=== PATIENT | male | born 1965 | race American Indian/Alaskan Native ===

== ENCOUNTER 2016-12-25 13:16 | Emergency (ER) | payer OTHER ==
[2016-12-25 13:27] VITALS: BP 132/83
[2016-12-25] MEDS ORDERED: Lidocaine 1% with EPINEPHrine 1:100,000 20 ML MDV INJECT ONE (13:51)
--- NOTE | 2016-12-25 14:12 | EDM.PDOC ---
ED HPI Skin/Rash - General Chief Complaint: Laceration Stated Complaint: CUT ON LT HAND Time Seen by Provider: 12/25/16 13:28 Source: Reports: Patient History Limitations: Reports: No limitations - History of Present Illness INITIAL COMMENTS - FREE TEXT/NARRATIVE: HISTORY AND PHYSICAL: History of present illness: [] Review of systems: As per history of present illness and below otherwise all systems reviewed and negative. Past medical history: As per history of present illness and as reviewed below otherwise noncontributory. Surgical history: As per history of present illness and as reviewed below otherwise noncontributory. Social history: No reported history of drug or alcohol abuse. Family history: As per history of present illness and as reviewed below otherwise noncontributory. HEENT: Normocephalic, atraumatic, pupils normal and symmetrical, supple neck, no meningismus, normal color Lungs: Normal and symmetrical chest wall excursion bilateral with no tachypnea or increased work of breathing, grossly normal chest exam Heart: No tachycardia in triage Abdomen: Normal-appearing, nondistended, no visible mass or asymmetry Pelvis: Normal-appearing Genitourinary: Deferred Rectal exam: Deferred Extremities: Atraumatic, normal use and range of motion, no visible evidence of gross neurovascular compromise . Laceration left hand over second metacarpal distribution. 5 cm wound parallel to bone no visible gross contamination or evidence of tendon involvement. Normal strength and range of motion in flexion and extension. Neuro: Awake, alert, oriented. Normal and appropriate mental status. Cranial nerves grossly unremarkable. Motor function normal. Nonfocal neurologic exam. Diagnostics: [Straight left hand to rule out foreign body pending] Therapeutics: [Procedure: Dermabond repair of left hand laceration. Patient sitting. Consent verbally to procedure. 1% lidocaine with epi infused into local wound area. Patient irrigated extensively for several minutes Carlee R. your patient. No visible gross contamination. No clinical evidence of tendon or bony involvement. Sterile compress applied hemostatic on reevaluation. Dermabond repair performed by ARNAUD Chisholm Patient tolerated well no complications.] Impression: [Laceration left hand] Plan: [Patient with laceration of left hand on the dorsum no evidence of tendon involvement neurovascularly intact. No visible gross contamination but discussed with patient possibility of occult foreign body. X-ray pending to rule out radiopaque foreign body. Tetanus needed and updated today. Wound irrigated with high volume tap Water irrigation and Dermabond repair performed, see procedure note. Definitive disposition and diagnosis as appropriate pending reevaluation and review of above. - Related Data Allergies Allergy/AdvReac Type Severity Reaction Status Date / Time codeine Allergy Hives Verified 12/25/16 13:27 Fish Containing Products Allergy Hives Verified 12/25/16 13:27 Penicillins Allergy Hives Verified 12/25/16 13:27 Home Meds: Ambulatory Orders Medication Instructions Recorded Confirmed Carisoprodol [Soma] 350 mg PO BID 01/01/16 12/25/16 SUMAtriptan [Imitrex] 20 mg NS ASDIRECTED PRN 01/01/16 12/25/16 traMADol HCl [Tramadol HCl] 50 mg PO Q6H PRN 01/01/16 12/25/16 Cephalexin [Keflex] 500 mg PO QID 5 Days 12/25/16 Past Medical History - Past Health History Medical/Surgical History: Denies Medical/Surgical History Musculoskeletal History: Reports: Back pain, chronic - Infectious Disease History Infectious Disease History: Reports: Chicken pox, Hepatitis C, Measles, Mumps - Past Surgical History GI Surgical History: Reports: Hernia, inguinal Social & Family History - Family History Family Medical History: Noncontributory - Tobacco Use Smoking Status *Q: Never Smoker - Recreational Drug Use Recreational Drug Use: No ED ROS GENERAL - Review of Systems Review Of Systems: See Below (Her history of present illness) ED EXAM, SKIN/RASH Exam: See Below (Or history of present illness) Course - Vital Signs Last Recorded V/S: Last Vital Signs Temp 36.7 C 12/25/16 13:24 Pulse 78 12/25/16 13:24 Resp 16 12/25/16 13:24 BP 132/83 12/25/16 13:24 Pulse Ox 96 12/25/16 13:24 - Orders/Labs/Meds Orders: Active Orders 24 hr Category Date Time Status Vaccines to be Administered [RC] PER UNIT ROUTINE Care 12/25/16 15:12 Ordered Cephalexin [Keflex] Med 12/25/16 15:12 Once 500 mg PO ONETIME ONE Diphth,Pertuss(Acell),Tet Vac [Adacel] Med 12/25/16 15:12 Once 0.5 ml IM .ONCE ONE Meds: Medications Discontinued Medications Generic Name Dose Route Start Last Admin Trade Name Tamela PRN Reason Stop Dose Admin Cephalexin 500 mg 12/25/16 15:12 Keflex PO 12/25/16 15:13 ONETIME ONE Diphtheria/Tetanus/Acell Pertussis 0.5 ml 12/25/16 15:12 Adacel IM 12/25/16 15:13 .ONCE ONE Lidocaine/Epinephrine 20 ml 12/25/16 13:51 12/25/16 14:29 Xylocaine 1% With Epinephrine 1:100,000 INJECT 12/25/16 13:52 20 ml ONETIME ONE Administration Octyl Cyanoacrylate 1 applic 12/25/16 15:02 12/25/16 15:10 Dermabond Mini TOP 12/25/16 15:03 1 applic ONETIME ONE Administration Departure - Departure Time of Disposition: 15:16 Disposition: Home, Self-Care 01 Condition: good Clinical Impression: Laceration of left hand Forms: ED Department Discharge Additional Instructions: Your laceration has been repaired with adhesive. Do not scrub Zocor apply ointment. The wound adhesive will fall off on its own in the appropriate time frame for spontaneous healing of the wound. Your tetanus is been updated including pertussis vaccination. Will be good for 5 years finish Keflex 4 times a day for 5 days as prescribed to prevent infection. Take Motrin or Tylenol as needed for pain and return immediately for signs of evolving infection. - My Orders Last 24 Hours: My Active Orders 12/25/16 15:12 Vaccines to be Administered [RC] PER UNIT ROUTINE Cephalexin [Keflex] 500 mg PO ONETIME ONE Diphth,Pertuss(Acell),Tet Vac [Adacel] 0.5 ml IM .ONCE ONE - Assessment/Plan Last 24 Hours: My Active Orders 12/25/16 15:12 Vaccines to be Administered [RC] PER UNIT ROUTINE Cephalexin [Keflex] 500 mg PO ONETIME ONE Diphth,Pertuss(Acell),Tet Vac [Adacel] 0.5 ml IM .ONCE ONE
--- NOTE | 2016-12-25 14:27 | CR ---
EXAMINATION: Left hand HISTORY: Pain COMPARISON: None TECHNIQUE: 2 views FINDINGS/IMPRESSION: There is no acute osseous abnormality, dislocation, or fracture. Bone mineraliz ation and joint spaces appear normal. No soft tissue swelling.
[2016-12-25] MEDS ORDERED: Octyl 2-Cyanoacrylate 1 APPLIC TUBE TOP ONE (15:02)
[2016-12-25] MEDS ORDERED: Cephalexin 500 MG Cap PO ONE (15:12)
[2016-12-25] MEDS ORDERED: Diphtheria,Pertussis(Acell),Tetanus Vaccine 0.5 ML Syringe IM ONE (15:12)
== END 2016-12-25 15:29 | disposition home or self-care (01) ==
LOC: MW.ED 13:16
DX: S61.412A Laceration without foreign body of left hand, initial encounter (principal); Z23 Encounter for immunization; Z88.5 Allergy status to narcotic agent; Z88.0 Allergy status to penicillin; Z91.013 Allergy to seafood; W29.8XXA Contact with other powered hand tools and household machinery, initial encounter; Y99.0 Civilian activity done for income or pay
CPT/HCPCS: 73120; 90471; 90715; 99283; A9270; 12001

== ENCOUNTER 2017-01-11 12:34 | Emergency (ER) | payer OTHER ==
--- NOTE | 2017-01-11 14:15 | EDM.PDOC ---
ED HPI GENERAL MEDICAL PROBLEM - General Chief Complaint: Wound Recheck Stated Complaint: PT HAS CUT ON LT HAND Time Seen by Provider: 01/11/17 12:45 Source of Information: Reports: Patient History Limitations: Reports: No Limitations - History of Present Illness INITIAL COMMENTS - FREE TEXT/NARRATIVE: History of present illness: [51-year-old male presenting with continued complaints of wound to the dorsal aspect of his left hand. Patient was seen in this ER for this injury immediately posttrauma and receive treatment, but patient feels that the hand is not healing as it should and as concerned with the nature of it being and resolved and would like it evaluated further.] Review of systems: As per history of present illness and below otherwise all systems reviewed and negative. Past medical history: As per history of present illness and as reviewed below otherwise noncontributory. Surgical history: As per history of present illness and as reviewed below otherwise noncontributory. Social history: No reported history of drug or alcohol abuse. Family history: As per history of present illness and as reviewed below otherwise noncontributory. Physical exam: HEENT: Atraumatic, normocephalic, pupils reactive, negative for conjunctival pallor or scleral icterus, mucous membranes moist, throat clear, neck supple, nontender, trachea midline. Lungs: Clear to auscultation, breath sounds equal bilaterally, chest nontender. Heart: S1S2, regular, negative for clicks, rubs, or JVD. Abdomen: Soft, nondistended, nontender. Negative for masses or hepatosplenomegaly. Negative for costovertebral tenderness. Pelvis: Stable nontender. Genitourinary: Deferred. Rectal: Deferred. Extremities: Left hand with any resolving laceration to the dorsal aspect approximately 2 and half centimeters long with granulation noted. 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 Neurovascular unremarkable. Neuro: Awake, alert, oriented. Cranial nerves II through XII unremarkable. Cerebellum unremarkable. Motor and sensory unremarkable throughout. Exam nonfocal. Patient has no deficit on range of motion on either flexion or extension but indicates that he feels pressure and pain on the dorsal aspect when he does make it this without left hand as opposed to the right. Diagnostics: [X-ray left hand] Therapeutics: [] Impression: [Cellulitis with retained foreign] Plan: [Antibiotics followup with hand] Definitive disposition and diagnosis as appropriate pending reevaluation and review of above. left hand Pain Score (Numeric/FACES): 4 - Related Data Allergies Allergy/AdvReac Type Severity Reaction Status Date / Time codeine Allergy Hives Verified 01/11/17 13:00 Fish Containing Products Allergy Hives Verified 01/11/17 13:00 Penicillins Allergy Hives Verified 01/11/17 13:00 Home Meds: Home Meds Carisoprodol [Soma] 350 mg PO BID 01/01/16 [History] SUMAtriptan [Imitrex] 20 mg NS ASDIRECTED PRN 01/01/16 [History] traMADol HCl [Tramadol HCl] 50 mg PO Q6H PRN 01/01/16 [History] Cephalexin [Keflex] 500 mg PO QID #40 capsule 01/11/17 [Rx] Past Medical History - Past Health History Medical/Surgical History: Denies Medical/Surgical History HEENT History: Reports: None Cardiovascular History: Reports: None Respiratory History: Reports: None Gastrointestinal History: Reports: None Genitourinary History: Reports: None Musculoskeletal History: Reports: Back Pain, Chronic Neurological History: Reports: None Psychiatric History: Reports: None Endocrine/Metabolic History: Reports: None Hematologic History: Reports: None Oncologic (Cancer) History: Reports: None Dermatologic History: Reports: None - Infectious Disease History Infectious Disease History: Reports: None - Past Surgical History GI Surgical History: Reports: Hernia, Inguinal Social & Family History - Family History Family Medical History: Noncontributory - Tobacco Use Smoking Status *Q: Former Smoker Used Tobacco, but Quit: No - Caffeine Use Caffeine Use: Reports: Coffee - Recreational Drug Use Recreational Drug Use: No ED ROS GENERAL - Review of Systems Review Of Systems: See Below (History of present illness) ED EXAM, GENERAL - Physical Exam Exam: See Below (The history of present illness) Course - Vital Signs Last Recorded V/S: Last Vital Signs Temp 36.6 C 01/11/17 13:01 Pulse 71 01/11/17 13:01 Resp 16 01/11/17 13:01 BP 123/71 01/11/17 13:01 Pulse Ox 98 01/11/17 13:01 - Orders/Labs/Meds Orders: Active Orders 24 hr Category Date Time Status Hand 2V Lt [CR] Stat Exams 01/11/17 12:50 Taken Departure - Departure Time of Disposition: 14:15 Disposition: Home, Self-Care 01 Condition: good Clinical Impression: Cellulitis, Laceration of left hand - Discharge Information Forms: ED Department Discharge Additional Instructions: The following information is given to patients seen in the emergency department who are being discharged to home. This information is to outline your options for follow-up care. We provide all patients seen in our emergency department with a follow-up referral. The need for follow-up, as well as the timing and circumstances, are variable depending upon the specifics of your emergency department visit. If you don't have a primary care physician on staff, we will provide you with a referral. We always advise you to contact your personal physician following an emergency department visit to inform them of the circumstance of the visit and for follow-up with them and/or the need for any referrals to a consulting specialist. The emergency department will also refer you to a specialist when appropriate. This referral assures that you have the opportunity for follow-up care with a specialist. All of these measure are taken in an effort to provide you with optimal care, which includes your follow-up. Under all circumstances we always encourage you to contact your private physician who remains a resource for coordinating your care. When calling for follow-up care, please make the office aware that this follow-up is from your recent emergency room visit. If for any reason you are refused follow-up, please contact the [facility] Emergency Department at and asked to speak to the emergency department charge nurse. As discussed it is imperative that you followup with the hand doctor secondary to the concern of the retained foreign body in the top of your left hand. Please take all antibiotics as directed in addition to following up with the hand specialist. Keep hand elevated at all times Return to ED as needed as discussed [facility] Special[facility] - Plastic Surgery Professional Building [address] [place] [address], [address] [place] [address] - My Orders Last 24 Hours: My Active Orders 01/11/17 12:50 Hand 2V Lt [CR] Stat - Assessment/Plan Last 24 Hours: My Active Orders 01/11/17 12:50 Hand 2V Lt [CR] Stat
[2017-01-11 14:38] VITALS: BP 124/80
--- NOTE | 2017-01-13 14:36 | CR ---
EXAM DATE: 01/11/17 PATIENT'S AGE: 51 Patient: TJ BROWNLEE Facility: [place], [place] Site . Site : [id number] Study: XRay Extremity Left hand [id number]/[id number] 1:12:05 PM Ordering Physician: Doctor Carter Final Report: HISTORY: Pain/wound. Technique: Left hand 2 views. Comparison: Radiographs 12/25/2016. Findings: Soft tissue swelling in the dorsum of the hand. 2 mm increased density focus in the dorsal hand soft tissues seen on the lateral view. This was not definitely seen on prior radiographs and may be a small foreign body. No fracture. 3 mm triangular area of increased density near the index finger nail bed radially. No erosions or periostitis. Joint spaces are preserved. Impression : 1. No bone abnormality. 2. Dorsal hand soft tissue swelling with 2 mm increased density focus in the dorsal soft tissues, not definitely seen on 12/25/2016 radiographs. This may be a small foreign body. 3. Triangular area of increased density near the nailbed of the index finger radially. This may be external to the patient. Correlate with skin exam. Dictated by Jf Larson MD @ Jan 11 2017 1:51PM (Electronic Signature) Report Signed by Proxy. ALIDA
== END 2017-01-11 14:36 | disposition home or self-care (01) ==
LOC: MW.ED 12:34
DX: S61.422D Laceration with foreign body of left hand, subsequent encounter (principal); L03.114 Cellulitis of left upper limb; Z87.891 Personal history of nicotine dependence; Z88.0 Allergy status to penicillin; Z91.013 Allergy to seafood; Z88.5 Allergy status to narcotic agent
CPT/HCPCS: 73120; 99283; A4566